=== PATIENT | female | born 1995 | race Caucasian/White ===

== ENCOUNTER → 2016-12-08 | Day surgery (SDC) | payer OTHER ==
[2016-12-06 10:42] VITALS: Ht 160 cm; Wt 52.3 kg
[~2016-12-08] VITALS: Ht 160 cm; Wt 52.3 kg
[~2016-12-08] MED LIST: AMOX1TAB42 PO; ATROPINE SULFATE 0.1 MG/ML 5ML SYR IV PRN; BCPILLS PO; CEFAZOLIN 2000 MG/60 ML D5W IV SCH; DEXAMETHASONE SOD INJ 4 MG/ML VIAL ONE; EpHEDrine SULFATE INJ 50 MG/ML AMP IV PRN; EpINEphrine INJ 1MG/ML AMP 1 MG/ML AMP ONE; FENTANYL CITRATE INJ 50 MCG/1 ML 2 ML VIAL IV PRN; FENTANYL CITRATE INJ 50 MCG/1 ML 2 ML VIAL ONE; GABA-113 PO; GLYCOPYRROLATE INJ 0.2 MG/ML VIAL ONE; LIDOCAINE 4% MPF SOAK 5 ML = 1 DOSE TOP ONE; LIDOCAINE HCL 2% 2 ML VIAL (20MG/ML) ONE; LIDOCAINE/EPINEPHRINE 1% INJ 50 ML VIAL ONE; MIDAZOLAM HCL 1 MG/ML 2ML VIAL ONE; NEOSTIGMINE METHYLSULFATE 5 MG/5 ML SYR ONE; ONDANSETRON INJ 2 MG/ML 2 ML VIAL IV PRN; ONDANSETRON INJ 2 MG/ML 2 ML VIAL ONE; OXYCODONE/ACETAMINOPHEN 5-325 TAB PO PRN; OXYMETAZOLINE HCL 0.05% NA SPR 15 ML BTL PRN; OXYMETAZOLINE HCL 0.05% NA SPR 15 ML BTL SCH; PATIENT'S ALLERGY INFO NEEDS ENTERED SCH; PRED10TA PO; PROPOFOL IV EMULSION 10 MG/ML 20 ML VIAL IV ONE; SODIUM CHLORIDE 0.9% 1000ML IV SCH
--- NOTE | 2016-12-08 09:40 | History & Physical Bridge - [place] ---
H&P Re-Evaluation Bridge Note: I have examined the patient, reviewed the History & Physical and in the interval since the performance of the History & Physical I have noted the following changes of clinical significance: No changes noted
--- NOTE | 2016-12-08 12:19 | [facility] Operative Report ---
Operative Report Operative Date Dec 08, 2016. Pre-Operative Diagnosis Chronic sinusitis, hypertrophy of nasal turbinates Post-Operative Diagnosis Same as preop Procedure(s) Performed Bilateral Endoscopic Sinus Surgery To Consist Of Bilateral Maxillary Antrostomies, Bilateral Complete Ethmoidectomies, Bilateral Jamey Bullosa Resection And Bilateral Inferior Turbinate Reduction Surgeon Dr. Calderon Human Relations Manager Surgeon(s) None Estimated Blood Loss 25 mL Findings BILATERAL JAMEY BULLOSA, B ITH, PUS WITHIN R MAX SINUS, POLYPOID MUCOSAL THICKENING R>L ETHMOID AND MAX SINUSES Specimens None I attest to the content of the Intraoperative Record and any orders documented therein. Any exceptions are noted below.
--- NOTE | 2016-12-08 12:21 | Discharge Instructions ---
Discharge Instructions Admission Reason for Admission: Chronic Sinusitis, Hypertrophy Of Nasal Turbinates Discharge Discharge Diagnosis / Problem: SAME Discharge Goals Goal(s): Improve function Activity Recommendations Activity Limitations: as noted below 1. LIGHT ACTIVITY FOR 2WEEKS 2. NO NOSE BLOWING FOR 2WEEKS 3. NO DRIVING WHILE ON NARCOTIC PAIN MEDS . Current Hospital Diet Patient's current hospital diet: Discharge Diet Recommended Diet: Regular Diet Procedures Procedures Performed: Bilateral Endoscopic Sinus Surgery To Consist Of Bilateral Maxillary Antrostomies, Bilateral Complete Ethmoidectomies, Bilateral Yamileth Bullosa Resection And Bilateral Inferior Turbinate Reduction Pending Studies Studies pending at discharge: no Medical Emergencies . Who to Call and When: Medical Emergencies: If at any time you feel your situation is an emergency, please call 911 immediately. . Non-Emergent Contact Non-Emergency issues call your: Surgeon . . "Provider Documentation" section prepared by Chemo Calderon. VTE Core Measure Inpt VTE Proph given/why not?: SCD's
[2016-12-08 12:54] VITALS: TEMP 37
--- NOTE | 2016-12-08 13:43 | Anesthesia Progress Nt - [facility] ---
Anesthesia Post Op Note Date & Time Dec 08, 2016 at 13:43 Vital Signs Pain Intensity: 3 Vital Signs Past 12 Hours Date Time Temp Pulse Resp B/P Pulse Ox O2 Delivery O2 Flow Rate FiO2 12/08/16 13:04 76 16 121/84 100 Room Air 12/08/16 12:54 37.0 64 16 118/80 100 Room Air 12/08/16 12:53 59 11 118/80 100 12/08/16 12:53 59 11 12/08/16 12:48 64 11 12/08/16 12:48 63 11 111/79 100 12/08/16 12:47 62 12 12/08/16 12:47 62 12 100 12/08/16 12:43 113/80 12/08/16 12:42 58 13 12/08/16 12:42 59 13 100 12/08/16 12:38 114/84 12/08/16 12:37 63 21 100 12/08/16 12:37 64 21 12/08/16 12:33 117/79 12/08/16 12:32 69 15 12/08/16 12:32 67 15 100 12/08/16 12:28 122/73 12/08/16 12:27 69 10 100 12/08/16 12:27 69 10 12/08/16 12:26 70 18 100 12/08/16 12:26 70 18 12/08/16 12:23 126/80 12/08/16 12:21 65 16 100 12/08/16 12:21 64 16 12/08/16 12:18 119/78 12/08/16 12:16 74 21 100 12/08/16 12:16 74 21 12/08/16 12:13 130/85 12/08/16 12:11 94 19 12/08/16 12:11 95 19 100 12/08/16 12:11 36.9 91 12 140/88 100 Humidified Oxygen 6 Diffusion Mask 12/08/16 09:19 36.8 80 16 125/80 99 Room Air Notes Mental Status: alert / awake / arousable, participated in evaluation Pt Amnestic to Procedure: Yes Nausea / Vomiting: adequately controlled Pain: adequately controlled Airway Patency, RR, SpO2: stable & adequate BP & HR: stable & adequate Hydration State: stable & adequate Anesthetic Complications: no major complications apparent
[2016-12-08 13:46] VITALS: BP 121/78; PULSE 69; O2SAT 100
--- NOTE | 2016-12-08 14:02 | OPERATIVE REPORT ---
DATE OF OPERATION: 12/08/2016 PREOPERATIVE DIAGNOSES: 1. Chronic rhinosinusitis. 2. Bilateral inferior turbinate hypertrophy. POSTOPERATIVE DIAGNOSES: 1. Chronic rhinosinusitis. 2. Bilateral inferior turbinate hypertrophy. PROCEDURES: 1. Bilateral maxillary antrostomies. 2. Bilateral complete ethmoidectomies. 3. Bilateral endoscopic enrrique bullosa resection. 4. Bilateral inferior turbinate outfracture and turbinoplasty. SURGEON: Dr. Calderon. ANESTHESIA: General endotracheal. ESTIMATED BLOOD LOSS: 25 mL FINDINGS: 1. Large left greater than right enrrique bullosa. 2. Bilateral inferior turbinate hypertrophy. 3. Purulence within the right maxillary sinus. 4. Polypoid mucosal thickening involving the right greater than left maxillary and ethmoid sinuses. SPECIMENS: None. COMPLICATIONS: None. INDICATIONS FOR THE PROCEDURE: The patient is a 21-year-old female with a history of chronic rhinosinusitis and recurrent acute sinusitis which has been unresponsive to maximal medical therapy including systemic antibiotics and steroids. CT scan showed bilateral maxillary and ethmoid sinusitis along with bilateral enrrique bullosa and inferior turbinate hypertrophy. The patient presents for the above-mentioned procedure on an outpatient elective basis. DETAILS OF PROCEDURE: After informed consent had been obtained from the patient, the patient was wheeled to the operating room and placed on the operating room table in the supine position. Monitors were placed after induction of general endotracheal anesthesia, the patient was prepped in the usual fashion for endoscopic sinus surgery. The left middle turbinate was injected with 1% lidocaine with 1:100,000 epinephrine. A sickle knife was used to incise the middle turbinate and the lateral half of the middle turbinate was removed using straight Des-Cut forceps and powered instrumentation. In essence, enrrique bullosa resection was performed. 1% lidocaine with 1:100,000 epinephrine was then used to inject the uncinate process and lateral nasal wall. Berlin elevator was used to incise the uncinate process from a superior to inferior direction, and a straight Des-Cut forceps was used to remove the uncinate process. The natural ostia of the left maxillary sinus was identified and this was enlarged anteriorly, inferiorly and posteriorly using powered instrumentation. A complete ethmoidectomy was then performed using powered instrumentation. The intraoperative findings were of polypoid mucosal thickening involving the left maxillary and ethmoid sinuses. The right side was then addressed in a similar fashion with similar intraoperative findings except in the right maxillary sinus there was purulence which was completely suctioned. A Jackson elevator was then used to infracture and subsequently outfracture the inferior turbinates bilaterally. The inferior turbinates were injected with 1% lidocaine with 1:100,000 epinephrine. A 2.0 mm turbinate blade using powered instrumentation was then used to perform bilateral inferior turbinoplasties in a submucosal fashion. The sinonasal cavities were then suctioned. Merogel was then placed into bilateral ethmoid cavity/middle meati. This marked the end of the case. The patient tolerated the procedure well and there were no apparent complications. An orogastric tube was placed and the stomach was suctioned free of air and stomach contents. The patient was extubated and transferred to recovery room in stable condition. I attest to the content of the Intraoperative Record and any orders documented therein. Any exceptio ns are noted below.
== END | disposition home or self-care (01) ==
LOC: X.SURG 09:00
DX: J32.0 Chronic maxillary sinusitis (principal); J32.2 Chronic ethmoidal sinusitis; J34.3 Hypertrophy of nasal turbinates

== ENCOUNTER → 2017-01-01 | Outpatient (CLI) | payer OTHER ==
[~2017-01-01] MED LIST changes: -ATROPINE SULFATE 0.1 MG/ML 5ML SYR IV PRN; -CEFAZOLIN 2000 MG/60 ML D5W IV SCH; -DEXAMETHASONE SOD INJ 4 MG/ML VIAL ONE; -EpHEDrine SULFATE INJ 50 MG/ML AMP IV PRN; -EpINEphrine INJ 1MG/ML AMP 1 MG/ML AMP ONE; -FENTANYL CITRATE INJ 50 MCG/1 ML 2 ML VIAL IV PRN; -FENTANYL CITRATE INJ 50 MCG/1 ML 2 ML VIAL ONE; -GLYCOPYRROLATE INJ 0.2 MG/ML VIAL ONE; -LIDOCAINE 4% MPF SOAK 5 ML = 1 DOSE TOP ONE; -LIDOCAINE HCL 2% 2 ML VIAL (20MG/ML) ONE; -LIDOCAINE/EPINEPHRINE 1% INJ 50 ML VIAL ONE; -MIDAZOLAM HCL 1 MG/ML 2ML VIAL ONE; -NEOSTIGMINE METHYLSULFATE 5 MG/5 ML SYR ONE; -ONDANSETRON INJ 2 MG/ML 2 ML VIAL IV PRN; -ONDANSETRON INJ 2 MG/ML 2 ML VIAL ONE; -OXYCODONE/ACETAMINOPHEN 5-325 TAB PO PRN; -OXYMETAZOLINE HCL 0.05% NA SPR 15 ML BTL PRN; -OXYMETAZOLINE HCL 0.05% NA SPR 15 ML BTL SCH; -PATIENT'S ALLERGY INFO NEEDS ENTERED SCH; -PROPOFOL IV EMULSION 10 MG/ML 20 ML VIAL IV ONE; -SODIUM CHLORIDE 0.9% 1000ML IV SCH
[2017-01-01 16:15] LABS: ALT/SGPT 22 U/L (12-78); AST/SGOT 12 U/L (15-37); BLOOD UREA NITROGEN 8 mg/dl (7-18); CALCIUM 8.9 mg/dl (8.5-10.1); CARBON DIOXIDE 25 mmol/L (21-32); CHLORIDE 105 mmol/L (98-107); CREATININE 0.65 mg/dl (0.60-1.20); GLUCOSE 73 mg/dl (70-99); POTASSIUM 3.7 mmol/L (3.5-5.1); SODIUM 140 mmol/L (136-145)
[2017-01-01 16:28] LABS: ALB/GLOB RATIO 1.1 (0.9-2); ALKALINE PHOSPHATASE 59 U/L (45-117); C-REACTIVE PROTEIN < 0.29 mg/dl (0-0.29); RHEUMATOID FACTOR < 10.0 U/mL (0-15)
[2017-01-01 16:51] LABS: LYME DISEASE AB IGG NEG (NEG); LYME DISEASE AB IGM EQUIVOCAL (NEG)
[2017-01-02 06:43] LABS: ESTIMATED AVERAGE GLUCOSE 100 mg/dl; HA1C FLAG Normal (Normal)
[2017-01-05 01:34] LABS: 18KDIGG BAND NONREACTIVE (NONREACTIVE); 23KDIGG BAND NONREACTIVE (NONREACTIVE); 23KDIGM BAND REACTIVE (NONREACTIVE); 28KDIGG BAND NONREACTIVE (NONREACTIVE); 30KDIGG BAND NONREACTIVE (NONREACTIVE); 39KDIGG BAND NONREACTIVE (NONREACTIVE); 39KDIGM BAND NONREACTIVE (NONREACTIVE); 41KDIGG BAND REACTIVE (NONREACTIVE); 41KDIGM BAND REACTIVE (NONREACTIVE); 45KDIGG BAND NONREACTIVE (NONREACTIVE); 58KDIGG BAND REACTIVE (NONREACTIVE); 66KDIGG BAND NONREACTIVE (NONREACTIVE); 93KDIGG BAND NONREACTIVE (NONREACTIVE)
== END | disposition home or self-care (01) ==
LOC: C.LAB 14:28
PROVIDERS: ATTEND Nurse Practitioner Adult Health
DX: M25.551 Pain in right hip (principal); M25.552 Pain in left hip; R53.83 Other fatigue; R63.1 Polydipsia